=== PATIENT | male | born 1990 | race African-American/Black ===

== ENCOUNTER 2022-03-24 07:47 | Emergency (ER) | payer SELFPAY ==
[~2022-03-24] VITALS: Ht 180.3 cm; Wt 79.5 kg
[~2022-03-24 07:47] MED LIST: AMOXICILLIN500 MG PO; DENIES CURRENT MEDS; NO HOME MEDS; ROBITUSSIN AC10 ML PO; ULTRAM50 M1 PO; UNKNOWN ALLERGY MED; ZITHROMAX250 MG PO
[2022-03-24 07:50] VITALS: BP 132/73
[2022-03-24 08:00] VITALS: BP 139/85
[2022-03-24 08:30] VITALS: BP 128/82
[2022-03-24 09:00] VITALS: BP 132/84
[2022-03-24 09:30] VITALS: BP 130/85
[2022-03-24 09:31] VITALS: BP 130/85
[2022-03-24] MEDS ORDERED: MOBIC7.5 M1 PO (09:32)
== END 2022-03-24 09:35 | disposition home or self-care (01) | DRG 556 ==
LOC: ED 07:47
DX: M25.551 Pain in right hip (principal); S50.811A Abrasion of right forearm, initial encounter; F17.200 Nicotine dependence, unspecified, uncomplicated; W01.0XXA Fall on same level from slipping, tripping and stumbling without subsequent striking against object, initial encounter; Y92.009 Unspecified place in unspecified non-institutional (private) residence as the place of occurrence of the external cause

== ENCOUNTER 2023-09-26 12:11 | Emergency (ER) | payer OTHER ==
[2023-09-26] VITALS (22 sets, daily range): BP systolic 120–152; BP diastolic 63–91
[~2023-09-26] VITALS: Ht 180.3 cm; Wt 84.0 kg
[~2023-09-26 12:11] MED LIST changes: +MOBIC7.5 M1 PO
[2023-09-26 13:28] LABS: BASO% 0.4 % (0-3); EOS% 3.9 % (0-8); HEMATOCRIT 44.3 % (39.0-50.0); HEMOGLOBIN 14.2 g/dl (14.0-18.0); IMMATURE GRANULOCYTES 0.2 % (0.0-5.0); LYMPH% 36.3 % (15-41); MEAN CELL VOLUME 94.1 fL CALC (80.0-100.0); MEAN CORPUSCULAR HGB 30.1 pG CALC (26.0-32.0); MEAN CORPUSCULAR HGB CONC 32.1 g/dL CAL (32.0-36.0); MONO% 11.6 % (2-13); NEUT# 2.34 thou/uL (1.82-7.42); NEUT% 47.6 % (42-76); RED BLOOD COUNT 4.71 mill/uL (4.70-6.10)
[2023-09-26 13:47] LABS: ALKALINE PHOSPHATASE 80 u/l (38-126); ANION GAP 7 (6-22 (CALC)); BILIRUBIN, TOTAL 0.3 mg/dL (0.2-1.3); BUN 12 mg/dL (9-20); BUN/CREATININE RATIO 15 (12-20 (CALC)); CARBON DIOXIDE 30 mmol/l (22-30); CHLORIDE 105 mmol/l (95-108); CREATININE 0.8 mg/dL (0.7-1.3); GFR FOR AFR.AMER. > 60 ML/MIN (>=60 (CALC)); GFR OTHER RACES > 60 ML/MIN (>=60 (CALC)); POTASSIUM 4.4 mmol/l (3.5-5.1); SGOT/AST 30 u/l (17-59); SODIUM 137 mmol/l (137-146); TOTAL PROTEIN 7.3 g/dL (6.3-8.2)
== END 2023-09-26 17:27 | disposition home or self-care (01) | DRG 313 ==
LOC: ED 12:11
PROVIDERS: Family Medicine
DX: R07.9 Chest pain, unspecified (principal); F17.200 Nicotine dependence, unspecified, uncomplicated